=== PATIENT | male | born 1960 | race Caucasian/White ===

== ENCOUNTER 2022-07-04 16:07 | Emergency (ER) | payer BC ==
[2022-07-04] MEDS ORDERED: LORazepam 2 MG/ML SDV IVPUSH ONE (17:09)
[2022-07-04] MEDS ORDERED: Sodium Chloride 0.9% 10 ML Syringe FLUSH PRN (17:09)
[2022-07-04 17:20] VITALS: BP 158/82; PULSE 102
[2022-07-04 17:44] LABS: ESTIMATED GFR 76 mL/min (>60)
[2022-07-04 18:04] LABS: CORONAVIRUS COVID-19 NAA NEGATIVE (NEGATIVE)
== END 2022-07-04 19:10 | disposition home or self-care (01) ==
LOC: JP.ED 16:07
DX: B34.9 Viral infection, unspecified (principal); R06.4 Hyperventilation; Z20.822 Contact with and (suspected) exposure to COVID-19
CPT/HCPCS: 0241U; 36600; 71046; 80053; 80305; 81001; 82803; 83690; 85025; 96374; 99284; J2060; J3490